=== PATIENT | male | born 1985 | race Caucasian/White ===

== ENCOUNTER 2020-04-18 01:22 | Emergency (ER) | payer MEDICAID ==
[~2020-04-18] VITALS: Ht 172.7 cm; Wt 72.6 kg
[2020-04-18 01:26] VITALS: BP_SYST 165
--- NOTE | 2020-04-18 01:26 | NUR ---
Placed in room 7 . Placed on cafeteria monitor, blood pressure machine and pulse oximeter. To gown for exam. Side rails up. Report given to SHAMIKA Raygoza.
--- NOTE | 2020-04-18 01:29 | NUR ---
SKYE HORTA at bedside examining patient.
--- NOTE | 2020-04-18 01:44 | NUR ---
# 18 gauge angiocath placed to LEFT ANTECUBITAL VEIN. Use of asceptic technique. Opsite placed over site. Blood return noted. Blood for lab drawn from site. Flushed with 10 cc of normal saline. No evidence of infiltration noted. Patient tolerated well.
[2020-04-18] MEDS ORDERED: ASPIRIN 81 MG TAB.CHEW PO ONE (01:45)
[2020-04-18] MEDS ORDERED: 0.45% NACL 1,000 ML IV SCH (01:45)
[2020-04-18] MEDS ORDERED: KETOROLAC TROMETHAMINE 30 MG VIAL IVP ONE (01:45)
[2020-04-18] MEDS ORDERED: ASPIRIN 81 MG TABLET(ECOTRIN) ONE (01:54)
[2020-04-18 02:01] LABS: RED CELL DISTRIBUTION WIDTH 13.7 % (9.0-15.0)
[2020-04-18 02:05] LABS: BASOPHILS # (AUTO) 0.1 K/uL (0.0-0.2); BASOPHILS % (AUTO) 0.4 % (0.0-2.0); EOSINOPHILS % (AUTO) 0.1 % (0.0-4.0); HEMATOCRIT 41.9 % (36-54); HEMOGLOBIN 14.1 g/dL (14.0-18.0); LYMPHOCYTES # (AUTO) 1.8 K/uL (1.0-5.5); LYMPHOCYTES % (AUTO) 14.2 % (20.5-51.5); MEAN CORPUSCULAR HEMOGLOBIN 30 pg (27-31); MEAN CORPUSCULAR HGB CONC 34 % (32-36); MEAN CORPUSCULAR VOLUME 88 fL (79.0-98.0); MONOCYTES # (AUTO) 0.8 K/uL (0.0-1.0); MONOCYTES % (AUTO) 6.3 % (1.7-9.3); NEUTROPHILS # (AUTO) 9.7 K/uL (1.8-7.7); PLATELET COUNT (AUTO) 239 K/uL (130-430); RED BLOOD CELL COUNT(AUTO) 4.76 MIL/uL (4.2-6.2); WHITE BLOOD COUNT (AUTO) 12.3 K/uL (4.8-10.8)
[2020-04-18 02:09] LABS: CALCIUM 8.7 mg/dL (8.4-11.0); CREATININE 0.81 mg/dL (0.55-1.30); POTASSIUM 3.5 mmol/L (3.5-5.1)
[2020-04-18 02:15] LABS: ALBUMIN 4.2 g/dL (3.4-4.8); TOTAL BILIRUBIN 0.2 mg/dL (0.0-1.0)
--- NOTE | 2020-04-18 03:05 | NUR ---
To toilet ambulatory, voided freely as verbalized, still with minimal on and off chest pain noted
--- NOTE | 2020-04-18 03:35 | NUR ---
Re-assesed by Dr. Dietz, for discharge
[2020-04-18 04:05] VITALS: BP_SYST 138
--- NOTE | 2020-04-18 04:05 | NUR ---
Patient given written and verbal discharge instructions and verbalizes understanding. ER MD discussed with patient the results and treatment provided. Patient in stable condition. ID arm band removed. IV catheter removed intact and dressing applied, no active bleeding.Patient educated on pain management and to follow up with PMD. Pain Scale 1/10. Opportunity for questions provided and answered. Medication side effect fact sheet provided.
[2020-04-18] MEDS ORDERED: LORA-259 PO ×2 (07:10→07:16)
== END 2020-04-18 04:05 | disposition home or self-care (01) ==
LOC: SED 01:22
DX: M94.0 Chondrocostal junction syndrome [Tietze] (principal); F41.1 Generalized anxiety disorder
CPT/HCPCS: 36415; 71045; 80053; 82550; 83880; 84484; 85025; 85379; 93005; 96361; 96374; 99285; J1885; J7030

== ENCOUNTER 2020-04-18 04:35 | Emergency (ER) | payer MEDICAID ==
[~2020-04-18] VITALS: Ht 172.7 cm; Wt 72.6 kg
[2020-04-18 04:40] VITALS: BP_SYST 154
--- NOTE | 2020-04-18 04:40 | NUR ---
Placed in room 7 . Placed on nuclear monitoring technician, blood pressure machine and pulse oximeter. To gown for exam. Side rails up. Report given to SHAMIKA CHAMORRO.
--- NOTE | 2020-04-18 04:41 | NUR ---
Came in ER this 34 year old male, ambulatory, AAOX4, breathing spontaneously at room air. discharge an hour ago, complained that he still have chest pain 7-10/10 radiating to the back, appears anxious noted. no previous medical/no surgical history. no known allergy. intial vital signs stable. 12 lead ECG taken and shows sinus tachycardia, reviewed by Dr. Dietz
--- NOTE | 2020-04-18 05:10 | NUR ---
Seen and examined by Dr. Dietz, treatment plan discussed and re-assurance given
[2020-04-18] MEDS ORDERED: LORazepam 1 MG TABLET PO ONE (05:30)
[2020-04-18] MEDS ORDERED: LORazepam 1 MG TABLET ONE (05:40)
--- NOTE | 2020-04-18 06:45 | NUR ---
Verbalized feel better but still have minimal chest pain when breathing 3/10, vital signs stable.
[2020-04-18] MEDS ORDERED: LORA-259 PO ×2 (07:10→07:16)
--- NOTE | 2020-04-18 07:23 | NUR ---
Patient given written and verbal discharge instructions and verbalizes understanding. ER MD discussed with patient the results and treatment provided. Patient in stable condition. ID arm band removed. Rx of given. Patient educated on pain management and to follow up with PMD. Pain Scale 0/10. Opportunity for questions provided and answered. Medication side effect fact sheet provided.
[2020-04-18 07:25] VITALS: BP_SYST 132
== END 2020-04-18 07:25 | disposition home or self-care (01) ==
LOC: SED 04:35
DX: M94.0 Chondrocostal junction syndrome [Tietze] (principal); F41.1 Generalized anxiety disorder
CPT/HCPCS: 93005; 99285

== ENCOUNTER 2020-06-29 21:08 | Emergency (ER) | payer MEDICAID ==
[~2020-06-29] VITALS: Ht 172.7 cm; Wt 77.1 kg
[2020-06-29 21:14] VITALS: BP_SYST 137
[2020-06-29 21:30] LABS: BASOPHILS # (AUTO) 0.1 K/uL (0.0-0.2); BASOPHILS % (AUTO) 0.8 % (0.0-2.0); EOSINOPHILS # (AUTO) 0.3 K/uL (0.0-0.4); HEMATOCRIT 41.2 % (36-54); HEMOGLOBIN 13.8 g/dL (14.0-18.0); LYMPHOCYTES # (AUTO) 2.1 K/uL (1.0-5.5); LYMPHOCYTES % (AUTO) 28.2 % (20.5-51.5); MEAN CORPUSCULAR HEMOGLOBIN 29 pg (27-31); MEAN CORPUSCULAR HGB CONC 33 % (32-36); MEAN CORPUSCULAR VOLUME 87 fL (79.0-98.0); MONOCYTES % (AUTO) 13.2 % (1.7-9.3); NEUTROPHILS # (AUTO) 3.9 K/uL (1.8-7.7); NEUTROPHILS % (AUTO) 53.8 % (40.0-70.0); PLATELET COUNT (AUTO) 208 K/uL (130-430); RED BLOOD CELL COUNT(AUTO) 4.73 MIL/uL (4.2-6.2); WHITE BLOOD COUNT (AUTO) 7.3 K/uL (4.8-10.8)
[2020-06-29] MEDS ORDERED: levETIRAcetam 500 MG TABLET PO ONE (21:45)
[2020-06-29] MEDS ORDERED: LORazepam 1 MG TABLET PO ONE (21:45)
[2020-06-29 21:46] LABS: CALCIUM 8.9 mg/dL (8.4-11.0); CREATININE 0.97 mg/dL (0.55-1.30); POTASSIUM 4.1 mmol/L (3.5-5.1)
[2020-06-29 21:52] LABS: ALBUMIN 3.7 g/dL (3.4-4.8); TOTAL BILIRUBIN 0.5 mg/dL (0.0-1.0)
[2020-06-29 21:54] LABS: PROTHROMBIN TIME 10.2 SECS (9.5-12.5)
[2020-06-29] MEDS ORDERED: OMEP20CA15 PO (22:54)
[2020-06-30 04:00] VITALS: BP_SYST 101
== END 2020-06-30 04:00 | disposition home or self-care (01) ==
LOC: SED 21:08
DX: K20.90 Esophagitis, unspecified without bleeding (principal); R06.02 Shortness of breath
CPT/HCPCS: 36415; 71045; 80053; 84484; 85025; 85610-TC; 85730-TC; 93005; 99285

== ENCOUNTER 2020-07-03 20:24 | Emergency (ER) | payer MEDICAID ==
[~2020-07-03] VITALS: Ht 170.2 cm; Wt 77.1 kg
[2020-07-03 20:24] VITALS: BP_SYST 150
[~2020-07-03 20:24] MED LIST: OMEP20CA15 PO
[2020-07-03 21:40] LABS: BASOPHILS # (AUTO) 0.1 K/uL (0.0-0.2); EOSINOPHILS # (AUTO) 0.4 K/uL (0.0-0.4); EOSINOPHILS % (AUTO) 4.7 % (0.0-4.0); HEMATOCRIT 39.6 % (36-54); HEMOGLOBIN 13.4 g/dL (14.0-18.0); LYMPHOCYTES # (AUTO) 2.5 K/uL (1.0-5.5); LYMPHOCYTES % (AUTO) 31.2 % (20.5-51.5); MEAN CORPUSCULAR HEMOGLOBIN 30 pg (27-31); MEAN CORPUSCULAR HGB CONC 34 % (32-36); MEAN CORPUSCULAR VOLUME 88 fL (79.0-98.0); MONOCYTES # (AUTO) 0.6 K/uL (0.0-1.0); MONOCYTES % (AUTO) 7.4 % (1.7-9.3); NEUTROPHILS # (AUTO) 4.5 K/uL (1.8-7.7); NEUTROPHILS % (AUTO) 55.7 % (40.0-70.0); PLATELET COUNT (AUTO) 218 K/uL (130-430); RED BLOOD CELL COUNT(AUTO) 4.52 MIL/uL (4.2-6.2); RED CELL DISTRIBUTION WIDTH 13.7 % (9.0-15.0); WHITE BLOOD COUNT (AUTO) 8.1 K/uL (4.8-10.8)
[2020-07-03 22:02] LABS: BARBITURATE, URINE NEGATIVE (NEG <=200); METHAMPHETAMINES SCREEN,URINE NEGATIVE (NEG <=500); URINE AMPHETAMINE NEGATIVE (NEG <=500); URINE METHADONE NEGATIVE (NEG <=200)
[2020-07-03 22:03] LABS: BENZODIAZEPINE, URINE NEGATIVE (NEG <=150); CANNABINOID, URINE NEGATIVE (NEG <=50); COCAINE, URINE NEGATIVE (NEG <=150); OPIATE, URINE NEGATIVE (NEG <=100); PHENCYCLIDINE SCREEN,URINE NEGATIVE (NEG <=25); UR TRICYCLIC ANTIDEPRESSANTS NEGATIVE (NEG <=300); URINE OXYCODONE SCREEN NEGATIVE (NEG <=100); URINE PROPOXYPHENE SCREEN NEGATIVE (NEG <=300)
[2020-07-03 22:13] LABS: ANION GAP 4 (5-15); CALCIUM 8.4 mg/dL (8.4-11.0); CHLORIDE 105 mmol/L (98-107); CREATININE 0.85 mg/dL (0.55-1.30); GLUCOSE 98 mg/dL (70-99); SODIUM SERUM 139 mmol/L (136-145); UREA NITROGEN, BLOOD 13 mg/dL (8-21)
[2020-07-03 22:15] LABS: GFR AFRICAN AMERICAN 133 mL/min (>90)
[2020-07-03 22:21] LABS: ALANINE AMINOTRANSFERASE 35 U/L (12-78); ALBUMIN 3.4 g/dL (3.4-4.8); ASPARTATE AMINOTRANSFERASE 23 U/L (10-37); LIPASE 135 U/L (73-393); TOTAL BILIRUBIN 0.2 mg/dL (0.0-1.0)
[2020-07-03] MEDS ORDERED: LORazepam 1 MG TABLET PO ONE (22:30)
[2020-07-03] MEDS ORDERED: KETOROLAC TROMETHAMINE 30 MG VIAL IM ONE (22:30)
[2020-07-03] MEDS ORDERED: NACL 0.9% 1,000 ML IV ONE (22:45)
[2020-07-03] MEDS ORDERED: IOHEXOL 350 mgI/mL, 150 ML INFUS..BTL IV ONE (23:19)
[2020-07-04 01:00] VITALS: BP_SYST 150
== END 2020-07-04 01:00 | disposition home or self-care (01) ==
LOC: SED 20:24
DX: R07.89 Other chest pain (principal); Z79.899 Other long term (current) drug therapy
CPT/HCPCS: 36415; 71045; 71275; 72191; 74175; 76376; 80053; 80307; 83690; 84484; 85025; 93005; 96361; 96374; 99285; J1885; J7030 ×2; Q9967

== ENCOUNTER 2020-07-09 23:23 | Emergency (ER) | payer MEDICAID ==
[~2020-07-09] VITALS: Ht 175.3 cm; Wt 72.6 kg
[2020-07-09 23:25] VITALS: BP_SYST 134
[2020-07-09] MEDS ORDERED: PANTOPRAZOLE SODIUM 40 MG TAB PO ONE (23:45)
[2020-07-09] MEDS ORDERED: IBUPROFEN 400 MG TABLET PO ONE (23:45)
[2020-07-10 01:01] VITALS: BP_SYST 118
[2020-07-10] MEDS ORDERED: LEVE500T9 PO (01:39)
== END 2020-07-10 01:01 | disposition home or self-care (01) ==
LOC: SED 23:23
DX: R07.89 Other chest pain (principal); Z79.899 Other long term (current) drug therapy
CPT/HCPCS: 71045; 93005; 99283

== ENCOUNTER 2020-07-10 01:23 | Emergency (ER) | payer MEDICAID ==
[~2020-07-10] VITALS: Ht 175.3 cm; Wt 79.4 kg
[2020-07-10 01:23] VITALS: BP_SYST 150
[2020-07-10] MEDS ORDERED: LEVE500T9 PO (01:39)
[2020-07-10] MEDS ORDERED: LORazepam 1 MG TABLET ONE (01:44)
[2020-07-10] MEDS ORDERED: levETIRAcetam 500 MG TABLET PO ONE (01:45)
[2020-07-10] MEDS ORDERED: LORazepam 1 MG TABLET PO ONE (01:45)
[2020-07-10 01:50] VITALS: BP_SYST 150
== END 2020-07-10 01:50 | disposition home or self-care (01) ==
LOC: SED 01:23
DX: R56.9 Unspecified convulsions (principal); Z79.899 Other long term (current) drug therapy
CPT/HCPCS: 99283

== ENCOUNTER 2020-07-12 01:41 | Emergency (ER) | payer MEDICAID ==
[~2020-07-12] VITALS: Ht 172.7 cm; Wt 77.1 kg
[~2020-07-12 01:41] MED LIST changes: +LEVE500T9 PO
[2020-07-12 01:54] VITALS: BP_SYST 134
[2020-07-12] MEDS: levETIRAcetam 500 MG TABLET PO ONE (02:35)
[2020-07-12] MEDS ORDERED: levETIRAcetam 500 MG TABLET ONE (02:35)
[2020-07-12 03:00] LABS: BASOPHILS % (AUTO) 0.7 % (0.0-2.0); EOSINOPHILS # (AUTO) 0.2 K/uL (0.0-0.4); EOSINOPHILS % (AUTO) 2.8 % (0.0-4.0); HEMATOCRIT 40.3 % (36-54); HEMOGLOBIN 13.6 g/dL (14.0-18.0); LYMPHOCYTES # (AUTO) 1.8 K/uL (1.0-5.5); LYMPHOCYTES % (AUTO) 25.6 % (20.5-51.5); MEAN CORPUSCULAR HEMOGLOBIN 30 pg (27-31); MEAN CORPUSCULAR HGB CONC 34 % (32-36); MEAN CORPUSCULAR VOLUME 87 fL (79.0-98.0); MONOCYTES # (AUTO) 0.7 K/uL (0.0-1.0); MONOCYTES % (AUTO) 9.4 % (1.7-9.3); NEUTROPHILS # (AUTO) 4.4 K/uL (1.8-7.7); NEUTROPHILS % (AUTO) 61.5 % (40.0-70.0); PLATELET COUNT (AUTO) 228 K/uL (130-430); RED BLOOD CELL COUNT(AUTO) 4.63 MIL/uL (4.2-6.2); RED CELL DISTRIBUTION WIDTH 14.2 % (9.0-15.0); WHITE BLOOD COUNT (AUTO) 7.2 K/uL (4.8-10.8)
[2020-07-12 03:07] LABS: BARBITURATE, URINE NEGATIVE (NEG <=200); BENZODIAZEPINE, URINE NEGATIVE (NEG <=150); CANNABINOID, URINE NEGATIVE (NEG <=50); COCAINE, URINE NEGATIVE (NEG <=150); METHAMPHETAMINES SCREEN,URINE POSITIVE (NEG <=500); OPIATE, URINE NEGATIVE (NEG <=100); PHENCYCLIDINE SCREEN,URINE NEGATIVE (NEG <=25); UR TRICYCLIC ANTIDEPRESSANTS NEGATIVE (NEG <=300); URINE AMPHETAMINE POSITIVE (NEG <=500); URINE METHADONE NEGATIVE (NEG <=200); URINE OXYCODONE SCREEN NEGATIVE (NEG <=100); URINE PROPOXYPHENE SCREEN NEGATIVE (NEG <=300)
[2020-07-12 03:12] LABS: CALCIUM 8.1 mg/dL (8.4-11.0); CREATININE 0.74 mg/dL (0.55-1.30); POTASSIUM 3.7 mmol/L (3.5-5.1)
[2020-07-12 03:18] LABS: ALBUMIN 3.6 g/dL (3.4-4.8); TOTAL BILIRUBIN 0.4 mg/dL (0.0-1.0)
[2020-07-12 03:40] VITALS: BP_SYST 134
== END 2020-07-12 03:40 | disposition home or self-care (01) ==
LOC: SED 01:41
DX: S00.03XA Contusion of scalp, initial encounter (principal); R55 Syncope and collapse; F19.90 Other psychoactive substance use, unspecified, uncomplicated; Z79.899 Other long term (current) drug therapy; W18.39XA Other fall on same level, initial encounter; Y93.89 Activity, other specified; Y92.89 Other specified places as the place of occurrence of the external cause; Y99.8 Other external cause status
CPT/HCPCS: 36415; 80053; 80307; 85025; 93005; 99284